=== PATIENT | female | born 1995 | race African-American/Black ===

== ENCOUNTER 2019-07-13 10:36 | Outpatient (CLI) | payer OTHER, SELFPAY ==
--- NOTE | ~2019-07-13 | US_ITS ---
EXAMINATION: US OB follow up DATE: 07/13/2019 11:28 INDICATION: Routine care, second trimester TECHNIQUE: Real-time ultrasound of the pelvis was performed. The interpreting radiologist was not pre sent for the study. COMPARISON: None. FINDINGS: There is a single living fetus in vertex presentation. The placenta is posterior/fundal. Fe isaiah cardiac activity and movement are noted. heart rate is 157 beats per minute (bpm). Th e amniotic fluid index is 16.1 cm which is normal. The following biometric data were obtained: Biparietal diameter (BPD): 6.3 cm; head circumference (HC): 23.4 cm; abdominal circumference (AC): 22 .9 cm; femur length (FL): 5.1 cm. The head circumference to abdominal circumference ratio is greater than two standard deviations below the mean. These measurements are otherwise concordant. Estimated weight is 1032 g +/- 154 g, which correlates with the 37th percentile when 10/11/2019 is used as estimated date of delivery. As single measurements, these parameters are each equal to the following estimated gestational ages w ith ranges of +/- 2 standard deviations: BPD: 25 weeks 5 days +/- 2 weeks 1 days. HC: 25 weeks 4 days +/- 2 weeks 0 days. AC: 27 weeks 2 days +/- 2 weeks 1 days. FL: 27 weeks 5 days +/- 2 weeks 1 days. estimated gestational age based solely on measurements from this exam is 26 weeks 4 days +/- 1 weeks 6 days. IMPRESSION: 1. Single living fetus in vertex presentation. 2. Normal amniotic fluid index. 3. Estimated weight is 1032 g +/- 154 g, which correlates with the 37th percentile when 10/11/19 20 is used as estimated date of delivery. 4. Head circumference to abdominal circumference ratio greater than two standard deviations below the mean. Reviewed, dictated and finalized at location A. IMPRESSION: 1. Single living fetus in vertex presentation. 2. Normal amniotic fluid index. 3. Estimated weight is 1032 g +/- 154 g, which correlates with the 37th p ercentile when 10/11/2019 is used as estimated date of delivery. 4. Head circumference to abdominal circumference ratio greater than two standar d deviations below the mean.
== END 2019-07-13 10:37 | disposition home or self-care (01) ==
LOC: ANHIMG 10:37
PROVIDERS: Visit Provider Obstetrics & Gynecology
DX: Z34.93 Encounter for supervision of normal pregnancy, unspecified, third trimester (principal)
CPT/HCPCS: 76816

== ENCOUNTER 2019-09-30 13:30 | Outpatient (RCR) | payer OTHER, SELFPAY ==
--- NOTE | ~2019-09-30 | US_ITS ---
EXAMINATION: US OB BPP wo non-stress DATE: 09/30/2019 15:03 INDICATION: Evaluate well-being TECHNIQUE: Real-time pelvic ultrasound was performed. The interpreting radiologist was not present fo r the study. COMPARISON: 07/13/2019 FINDINGS: There is a single living fetus in vertex presentation. The placenta is fundal/posterior. cardi ac activity and movement are demonstrated. heart rate is 135 beats per minute (bpm). Biophysical profile performed by the technologist: breathing (30 sec sustained breathing in 30 minutes): 2 out of 2 movement (3 gross body movements in 30 minutes): 2 out of 2 tone (one episode of hmiqomj-isbufhsvi-mfaeazw limb movement): 2 out of 2 Amniotic fluid pocket (2 cm): 2 out of 2 Total score: 8 out of 8 IMPRESSION: 1. Single living intrauterine in vertex presentation with heart rate of 135 bpm. 2. Normal placenta. 3. Biophysical profile 8 out of 8. Reviewed, dictated and finalized at location A.
[2019-09-30 16:12] VITALS: BP 143/77; PULSE 106
== END 2019-10-11 07:57 | disposition home or self-care (01) ==
LOC: ANHOBOP 13:30
PROVIDERS: Visit Provider Obstetrics & Gynecology
DX: O26.899 Other specified pregnancy related conditions, unspecified trimester (principal); Z3A.00 Weeks of gestation of pregnancy not specified
CPT/HCPCS: 59025; 76819

== ENCOUNTER 2019-10-08 14:20 | Inpatient (IN) | payer OTHER, SELFPAY ==
[2019-10-08] VITALS (64 sets, daily range): BP systolic 99–153; BP diastolic 44–116; PULSE 95–137; RESP 18; TEMP 37–37.7; O2SAT 96–100
[2019-10-08 15:21] LABS: Basophils Percent Auto 0.3 % (0.2-1.2); Eosinophils Absolute Auto 0.2 K/mm3 (0-0.3); Eosinophils Percent Auto 1.3 % (0-4.4); Hematocrit 28.7 % (37.0-47.0); Hemoglobin 9.4 g/dL (12.0-15.0); Immature Granulocyte Absolute 0.09 K/mm3 (0.00-0.031); Immature Granulocyte Percent A 0.8 % (0-0.5); Lymphocytes Absolute Auto 0.86 K/mm3 (0.9-3.2); Lymphocytes Percent Auto 7.2 % (18.3-44.2); Mean Corpuscular HGB Conc 32.8 g/dl (32-36); Mean Corpuscular Hemoglobin 27.3 pg (26-34); Mean Corpuscular Volume 83.4 fl (80-100); Mean Platelet Volume 9.9 fl (7.4-10.4); Monocytes Absolute Auto 1.1 K/mm3 (0.1-0.6); Monocytes Percent Auto 8.8 % (2.6-8.5); Neutrophils Absolute Auto 9.7 K/mm3 (1.3-6.7); Neutrophils Percent Auto 81.6 % (45.5-73.1); Platelet Count Result 265 k/mm3 (150-375); Red Blood Count 3.44 M/mm3 (4.2-5.4); Red Cell Distribution Width 14.6 % (11.5-14.5); White Blood Count 11.9 K/mm3 (4.5-10.0)
[2019-10-08] MEDS: LACTATED RINGERS 1,000 ML 125 ML IV CONT ×2 (15:30→16:15)
[2019-10-08] MEDS: AMPICILLIN 2 GM/NS 100 ML 2 GM/100 ML BAG IVPB (15:32)
[2019-10-08 15:39] LABS: Alanine Aminotransferase 13 U/L (4-35); Albumin Level 3.7 g/dL (3.5-5.1); Alkaline Phosphatase 295 U/L (38-126); Aspartate Amino Transferase 26 U/L (14-36); Bilirubin,Total 0.6 mg/dL (0.2-1.3); Blood Urea Nitrogen 5 mg/dL (7-17); Calcium 9.3 mg/dL (8.4-10.2); Carbon Dioxide 19 mmol/L (22-30); Chloride 104 mmol/L (98-107); Estimated Glomerular Filt Rate > 60; Glucose 106 mg/dL (65-105); Potassium 3.4 mmol/L (3.4-5.0); Sodium 134 mmol/L (137-145); Uric Acid 4.7 mg/dL (2.5-7.5)
--- NOTE | 2019-10-08 15:42 | PM.IMHP ---
H&P: HPI History of Present Illness Chief complaint: Contractions Narrative: Megan Werner is a 24 year old female at 39w4d presenting to L&D with contractions since this morning. care with Dr. Bruce, denies any complications with . Contractions are regular and painful. She would like an epidural. Review of Systems Constitutional: Constitutional: Reports no additional constitutional complaints Cardiovascular: Cardiovascular: Reports no additional cardiovascular complaints Respiratory: Respiratory: Reports no additional respiratory complaints Gastrointestinal: Gastrointestinal: Reports no additional gastrointestinal complaints Genitourinary: Genitourinary: Reports no additional female genitourinary complaints Neurologic: Reports system reviewed and no additional complaints, except as documented Psychiatric: Psychiatric: Reports no additional psychiatric complaints [facility] Family History Family History Other Unknown family medical history Social History Social History Substance use: never Spiritual care concerns: No Meds Home Medications and Allergies Home Medications Medication Instructions Recorded Confirmed Type PNV cmb#95-ferrous fumarate-FA 1 tablet PO DAILY 09/29/19 09/29/19 History [] Allergies Allergy/AdvReac Type Severity Reaction Status Date / Time No Known Allergies Allergy Verified 09/29/19 11:02 Vital Signs Vital Signs - 24 hr 10/08/19 15:23 Pulse Rate 111 H Blood Pressure 127/82 Exam Const: General: no acute distress and uncomfortable (with contractions) Resp: Effort & Inspection: normal respiratory effort Cardio: Rate: regular rate GI: Other: gravid : Other: 5/80/-2 with bulging membranes Skin: General skin exam: normal color Neuro: Speech: normal speech Psych: Mental Status: mental status grossly normal H&P: Results Labs Labs: Short CBC 10/08/19 Range/Units 15:12 WBC 11.9 H (4.5-10.0) K/mm3 Hgb 9.4 L (12.0-15.0) g/dL Hct 28.7 L (37.0-47.0) % Plt Count 265 (150-375) k/mm3 BMP 10/08/19 15:12 Sodium 134 L Potassium 3.4 Chloride 104 Carbon Dioxide 19 L BUN 5 L Creatinine 0.60 L Glucose 106 H Calcium 9.3 Liver Function 10/08/19 Range/Units 15:12 Total Bilirubin 0.6 (0.2-1.3) mg/dL AST 26 (14-36) U/L ALT 13 (4-35) U/L Alkaline Phosphatase 295 H (38-126) U/L Albumin 3.7 (3.5-5.1) g/dL Assessment and Plan Assessment and plan (1) Term : Code(s): Z34.90 - Encounter for supervision of normal , unspecified, unspecified trimester Status: Acute Assessment and Plan: Routine intrapartum care (2) Active labor at term: Status: Acute Assessment and Plan: Admit to L&D for labor Epidural for pain management requested (3) Positive GBS test: Code(s): B95.1 - Streptococcus, group B, as the cause of diseases classified elsewhere Status: Acute Assessment and Plan: GBS prophylaxis
[2019-10-08 16:19] LABS: HIV 1/2 Ab P24 Ag Result Negative (Negative)
--- NOTE | 2019-10-08 16:31 | WPDANESEPPF ---
Anes - Initial Pre Proc Eval Date/Time: 10/08/19 16:31 Surgeon: Que Bruce MD Pre Op Diagnosis: Contractions Patient Data Age: 24 Gender: F Height: Weight: Last Vital Signs Pulse 112 H 10/08/19 16:29 BP 99/44 L 10/08/19 16:29 Pulse Ox 99 10/08/19 16:27 Allergies Allergy/AdvReac Type Severity Reaction Status Date / Time No Known Allergies Allergy Verified 09/29/19 11:02 Home Medications Medication Instructions Recorded Confirmed Type PNV cmb#95-ferrous fumarate-FA 1 tablet PO DAILY 09/29/19 09/29/19 History [] Laboratory Tests 10/08/19 10/08/19 10/08/19 15:12 15:12 15:12 WBC 11.9 K/mm3 H K/mm3 (4.5-10.0) RBC 3.44 M/mm3 L M/mm3 (4.2-5.4) Hgb 9.4 g/dL L g/dL (12.0-15.0) Hct 28.7 % L % (37.0-47.0) MCV 83.4 fl fl (80-100) MCH 27.3 pg pg (26-34) MCHC 32.8 g/dl g/dl (32-36) RDW 14.6 % H % (11.5-14.5) Plt Count 265 k/mm3 k/mm3 (150-375) MPV 9.9 fl fl (7.4-10.4) Immature Gran % (Auto) 0.8 % H % (0-0.5) Neut % (Auto) 81.6 % H % (45.5-73.1) Lymph % (Auto) 7.2 % L % (18.3-44.2) [place] % (Auto) 8.8 % H % (2.6-8.5) Eos % (Auto) 1.3 % % (0-4.4) Baso % (Auto) 0.3 % % (0.2-1.2) Lymph # (Auto) 0.86 K/mm3 L K/mm3 (0.9-3.2) [place] # (Auto) 1.1 K/mm3 H K/mm3 (0.1-0.6) Eos # (Auto) 0.2 K/mm3 K/mm3 (0-0.3) Baso # (Auto) 0.0 K/mm3 K/mm3 (0.0-0.1) Abs Immat Gran (auto) 0.09 K/mm3 H K/mm3 (0.00-0.031) Absolute Neuts (auto) 9.7 K/mm3 H K/mm3 (1.3-6.7) Absolute Nucleated RBC 0.0 K/mm3 K/mm3 (0.0-0.012) Nucleated RBC % 0.0 % % (0.0-0.2) Sodium Potassium Chloride Carbon Dioxide BUN Creatinine Estim Creat Clear Calc Estimated GFR Glucose Uric Acid Calcium Total Bilirubin AST ALT Alkaline Phosphatase Total Protein Albumin RPR Pending HIV 1&2 Ab/P24 Ag 4thGn Negative (Negative) 10/08/19 10/08/19 15:12 15:12 WBC RBC Hgb Hct MCV MCH MCHC RDW Plt Count MPV Immature Gran % (Auto) Neut % (Auto) Lymph % (Auto) [place] % (Auto) Eos % (Auto) Baso % (Auto) Lymph # (Auto) [place] # (Auto) Eos # (Auto) Baso # (Auto) Abs Immat Gran (auto) Absolute Neuts (auto) Absolute Nucleated RBC Nucleated RBC % Sodium 134 mmol/L L mmol/L (137-145) Potassium 3.4 mmol/L mmol/L (3.4-5.0) Chloride 104 mmol/L mmol/L (98-107) Carbon Dioxide 19 mmol/L L mmol/L (22-30) BUN 5 mg/dL L mg/dL (7-17) Creatinine 0.60 mg/dL L mg/dL (0.7-1.0) Estim Creat Clear Calc Not Reportable Estimated GFR > 60 (59 - ) Glucose 106 mg/dL H mg/dL (65-105) Uric Acid Cancelled 4.7 mg/dL mg/dL (2.5-7.5) Calcium 9.3 mg/dL mg/dL (8.4-10.2) Total Bilirubin 0.6 mg/dL mg/dL (0.2-1.3) AST 26 U/L U/L (14-36) ALT 13 U/L U/L (4-35) Alkaline Phosphatase 295 U/L H U/L (38-126) Total Protein 7.0 g/dL g/dL (6.3-8.2) Albumin 3.7 g/dL g/dL (3.5-5.1) RPR HIV 1&2 Ab/P24 Ag 4thGn Patient hx anesthesia problems: none Family hx anesthesia problems: none [facility] Family History Family History Other Unknown family medical history Social History Social History (Reviewed 10/08/19 @ 16:32 by Bartolo Walsh,
--- NOTE | 2019-10-08 16:39 | LDADM ---
This patient, Megan Werner, was admitted to Labor/Delivery/Recovery 103 on 10/08/19 at 14:20. Plans for labor, pain management and were discussed with patient. Patient/family oriented to hospital policies and general routines including ID bracelet, bed and alarms, visiting hours, pain management, procedures, bathroom and other care routines, personal items, smoking policy, room service/diet and guest tray routines, security routines, call light, and visiting hours. Patient/Family are encouraged to report perceived risks to care and to ask questions if they do not understand what they are told or what they should do. See OBIX for further documentation.
[2019-10-08] MEDS: OXYTOCIN 30 UNITS/NS 500 ML 30 UNITS/500 ML BAG 999 UNITS IV CONT (17:58)
--- NOTE | 2019-10-08 18:30 | P.PCNOB_ITS ---
OB - Delivery Note Procedure Delivery date: 10/08/19 Intrapartal events: None Route of delivery: Laceration description: Perineal - 1st Degree Delivery repair: vicryl Estimated blood loss (mL): 200 [place] Baby Date of : 10/08/19 Time of : 18:02 Weeks of gestation at delivery: 39 gender: Female Weight (pounds): 6 Weight (ounces): 15 presentation: vertex position: Right Occiput Anterior Placenta delivery description: Spontaneous cord vessel description: 3 Vessels score one minute: 9 score five minutes: 9
[2019-10-08 18:34] LABS: Add Urine Microscopic? YES; Appearance Urine Clear (Clear); Bacteria Urine Trace /hpf; Bilirubin Urine 1+ (Negative); Blood Urine Negative (Negative); Color Urine Amber (Yellow); Glucose Urine UA Negative (Negative); Ketones Urine 1+ mg/dL (Negative); Leukocyte Esterase Ur Negative LEU/UL (Negative); Mucus Urine Heavy /lpf; Nitrate Urine Negative (Negative); Protein Urine 2+ mg/dL (Negative); Squamous Epithelial Cell Urine Moderate /hpf (Few); WBC Urine 16-20 /hpf
[2019-10-08 18:37] LABS: Specific Grav Ur 1.033 (1.001-1.035)
[2019-10-08] MEDS: OXYTOCIN 30 UNITS/NS 500 ML 30 UNITS/500 ML BAG 125 UNITS IV CONT (18:47)
[2019-10-08] MEDS: IBUPROFEN 600 MG TABLET PO (20:15)
--- NOTE | 2019-10-08 20:32 | OBPPTRN ---
Patient transferred to post room #281 via wheelchair with baby in bassinet. Support person present. Oriented to unit, room, information board, rooming in, admission packet and security measures. Patient verbalizes understanding.
--- NOTE | 2019-10-08 20:42 | OP_ITS ---
DATE OF PROCEDURE: 10/08/2019 PROCEDURE: Normal spontaneous vaginal delivery. PRE-DELIVERY DIAGNOSES: 1. Sqhtxo-iqpm-lrge term gestation. 2. Active labor. POST-DELIVERY DIAGNOSES: 1. Ffipjx-fiho-vrnu term gestation. 2. Active labor. ANESTHESIA: Epidural. ESTIMATED BLOOD LOSS: 200 mL. FINDINGS: 1. Single live female , born on October 08, 2019 at 1802, weight 6 pounds 15 ounces, 9 and 9. 2. First-degree perineal laceration repaired with 2-0 Vicryl. 3. 5 mm vaginal cyst. SPECIMEN: Vaginal cyst, sent to pathology. COMPLICATIONS: None apparent. BRIEF HISTORY: A 24-year-old G4, P1, at 39 weeks and 4 days, presented to Labor and Delivery in labor. The patient was noted to be 4 cm. The patient progressed in normal labor, had spontaneous rupture of membranes. DESCRIPTION OF PROCEDURE: Once the patient was noted to be complete and ready to push, the labor bed was broken down and her legs were placed in stirrups for support. With contractions and maternal efforts, the presented in CRISTIANO position. The head was delivered. No nuchal cord noted. Gentle downward traction was applied. Anterior shoulder was delivered without incident followed by the posterior shoulder and the rest of the body. Delayed cord clamping of approximately 1 minute was performed. Cord was clamped and cut. Cord gases collected. Gentle traction applied on the umbilical cord, and the placenta was delivered spontaneously. Fundal massage was applied. IV oxytocin administered. Exam was performed to identify any lacerations. A first-degree perineal laceration was noted. This was bleeding, so this was repaired with 2-0 Vicryl. Along the line of her perineal laceration, there was a vaginal cyst. This was removed and sent to pathology for further analysis. The patient tolerated the procedure well and all instrument and sponge counts were correct at the end of the procedure. D I MT: Alirio
[2019-10-08] MEDS: DIBUCAINE 1% OINTMENT 30 GM TUBE 1 APPLIC TOPICAL (20:45)
[2019-10-08] MEDS: BENZOCAINE 20% AER SPR (*SP) 56 GM CAN 1 SPRAY TOPICAL (20:45)
[2019-10-09 06:36] LABS: Hematocrit 29.8 % (37.0-47.0); Hemoglobin 9.5 g/dL (12.0-15.0)
[2019-10-09 08:57] VITALS: BP 136/82; PULSE 77; RESP 16; TEMP 36.4; O2SAT 100
[2019-10-09] MEDS: POLYSACCHARIDE IRON COMPLEX 150 MG CAPSULE PO ×2 (09:01→16:03)
[2019-10-09] MEDS: DOCUSATE SODIUM 100 MG CAPSULE PO ×2 (09:01→16:01)
[2019-10-09] MEDS: MULTIVIT/MIN/PREN/FOL AC/IRON TABLET 1 TAB PO (09:01)
--- NOTE | 2019-10-09 10:02 | PM.OBPNVD ---
OB - PN: Subj Subjective Date/time seen: 10/09/19 10:02 Interval history: 24yo s/p on 10/07. Patient comments: no complaints and pain well controlled [place] baby status: doing well Narrative: Doing well, pain well controlled, lochia decreasing. Would like to go home today after 24 hours. OB - PN: Obj Data Labs CBC & Chem 7: 10/09/19 05:57 10/08/19 15:12 Labs: Laboratory Results - last 24 hr 10/08/19 10/08/19 10/08/19 15:12 15:12 15:12 WBC 11.9 H RBC 3.44 L Hgb 9.4 L Hct 28.7 L MCV 83.4 MCH 27.3 MCHC 32.8 RDW 14.6 H Plt Count 265 MPV 9.9 Immature Gran % (Auto) 0.8 H Neut % (Auto) 81.6 H Lymph % (Auto) 7.2 L [place] % (Auto) 8.8 H Eos % (Auto) 1.3 Baso % (Auto) 0.3 Lymph # (Auto) 0.86 L [place] # (Auto) 1.1 H Eos # (Auto) 0.2 Baso # (Auto) 0.0 Abs Immat Gran (auto) 0.09 H Absolute Neuts (auto) 9.7 H Absolute Nucleated RBC 0.0 Nucleated RBC % 0.0 Sodium Potassium Chloride Carbon Dioxide BUN Creatinine Estim Creat Clear Calc Estimated GFR Glucose Uric Acid Calcium Total Bilirubin AST ALT Alkaline Phosphatase Total Protein Albumin Urine Color Urine Appearance Urine pH Ur Specific [place] Urine Protein Urine Glucose (UA) Urine Ketones Ur Blood (Man) Urine Nitrate Urine Bilirubin Urine Urobilinogen Leukocyte Esterase Rfl Urine RBC Urine WBC Ur Squamous Epith Cells Urine Bacteria Urine Mucus HIV 1&2 Ab/P24 Ag 4thGn Negative Blood Type A Positive Antibody Screen Negative 10/08/19 10/08/19 10/08/19 15:12 15:12 18:14 WBC RBC Hgb Hct MCV MCH MCHC RDW Plt Count MPV Immature Gran % (Auto) Neut % (Auto) Lymph % (Auto) [place] % (Auto) Eos % (Auto) Baso % (Auto) Lymph # (Auto) [place] # (Auto) Eos # (Auto) Baso # (Auto) Abs Immat Gran (auto) Absolute Neuts (auto) Absolute Nucleated RBC Nucleated RBC % Sodium 134 L Potassium 3.4 Chloride 104 Carbon Dioxide 19 L BUN 5 L Creatinine 0.60 L Estim Creat Clear Calc Not Reportable Estimated GFR > 60 Glucose 106 H Uric Acid Cancelled 4.7 Calcium 9.3 Total Bilirubin 0.6 AST 26 ALT 13 Alkaline Phosphatase 295 H Total Protein 7.0 Albumin 3.7 Urine Color [place] Urine Appearance Clear Urine pH 5.0 Ur Specific [place] 1.033 Urine Protein 2+ H Urine Glucose (UA) Negative Urine Ketones 1+ H Ur Blood (Man) Negative Urine Nitrate Negative Urine Bilirubin 1+ H Urine Urobilinogen 4.0 H Leukocyte Esterase Rfl Negative Urine RBC 3-5 H Urine WBC 16-20 H Ur Squamous Epith Cells Moderate H Urine Bacteria Trace Urine Mucus Heavy H HIV 1&2 Ab/P24 Ag 4thGn Blood Type Antibody Screen 10/09/19 05:57 WBC RBC Hgb 9.5 L Hct 29.8 L MCV MCH MCHC RDW Plt Count MPV Immature Gran % (Auto) Neut % (Auto) Lymph % (Auto) [place] % (Auto) Eos % (Auto) Baso % (Auto) Lymph # (Auto) [place] # (Auto) Eos # (Auto) Baso # (Auto) Abs Immat Gran (auto) Absolute Neuts (auto) Absolute Nucleated RBC Nucleated RBC % Sodium Potassium Chloride Carbon Dioxide BUN Creatinine Estim Creat Clear Calc Estimated GFR Glucose Uric Acid Calcium Total Bilirubin AST ALT Alkaline Phosphatase Total Protein Albumin Urine Color Urine Appearance Urine pH Ur Specific [place] Urine Protein Urine Glucose (UA) Urine Ketones Ur Blood (Man) Urine Nitrate Urine Bilirubin Urine Urobilinogen Leukocyte Esterase Rfl Urine RBC Urine WBC Ur Squamous Epith Cells Urine Bacteria Urine Mucus HIV 1&2 Ab/P24 Ag 4thGn Blood Type Antibody Screen OB - PN A/P Assessment and Plan (1) (normal spontaneous vaginal delivery):
--- NOTE | 2019-10-09 10:07 | PM.DS ---
DS: Admitting Diagnosis Admitting Diagnosis Admitting Diagnosis: Encounter for supervision of normal , unspecified, unspecified trimester DS: Discharge Diagnosis Discharge Diagnosis (1) (normal spontaneous vaginal delivery): Code(s): O80 - Encounter for full-term uncomplicated delivery Status: Acute Assessment and Plan: routine care pain management ambulate ok for DC home today DS: Summary Time Spent with Patient Time attestation: Total time spent providing and/or coordinating discharge services: Exam Const: General: no acute distress and uncomfortable (with contractions) Resp: Effort & Inspection: normal respiratory effort Cardio: Rate: regular rate GI: Inspection: normal to inspection Other: fundus firm Skin: General skin exam: normal color Neuro: Speech: normal speech Psych: Mental Status: mental status grossly normal DS: Data Data Completed and Pending Pending studies at discharge: Pending at discharge 10/08/19 18:32 Surgical [PTH] Routine 10/08/19 19:37 Surgical [PTH] Routine Labs on day of discharge: Labs from last 24 hours 10/09/19 10/08/19 10/08/19 05:57 18:14 15:12 WBC RBC Hgb 9.5 L Hct 29.8 L MCV MCH MCHC RDW Plt Count MPV Immature Gran % (Auto) Neut % (Auto) Lymph % (Auto) [place] % (Auto) Eos % (Auto) Baso % (Auto) Lymph # (Auto) [place] # (Auto) Eos # (Auto) Baso # (Auto) Abs Immat Gran (auto) Absolute Neuts (auto) Absolute Nucleated RBC Nucleated RBC % Sodium 134 L Potassium 3.4 Chloride 104 Carbon Dioxide 19 L BUN 5 L Creatinine 0.60 L Estim Creat Clear Calc Not Reportable Estimated GFR > 60 Glucose 106 H Uric Acid 4.7 Calcium 9.3 Total Bilirubin 0.6 AST 26 ALT 13 Alkaline Phosphatase 295 H Total Protein 7.0 Albumin 3.7 Urine Color [place] Urine Appearance Clear Urine pH 5.0 Ur Specific [place] 1.033 Urine Protein 2+ H Urine Glucose (UA) Negative Urine Ketones 1+ H Ur Blood (Man) Negative Urine Nitrate Negative Urine Bilirubin 1+ H Urine Urobilinogen 4.0 H Leukocyte Esterase Rfl Negative Urine RBC 3-5 H Urine WBC 16-20 H Ur Squamous Epith Cells Moderate H Urine Bacteria Trace Urine Mucus Heavy H RPR HIV 1&2 Ab/P24 Ag 4thGn Blood Type Antibody Screen 10/08/19 10/08/19 10/08/19 15:12 15:12 15:12 WBC RBC Hgb Hct MCV MCH MCHC RDW Plt Count MPV Immature Gran % (Auto) Neut % (Auto) Lymph % (Auto) [place] % (Auto) Eos % (Auto) Baso % (Auto) Lymph # (Auto) [place] # (Auto) Eos # (Auto) Baso # (Auto) Abs Immat Gran (auto) Absolute Neuts (auto) Absolute Nucleated RBC Nucleated RBC % Sodium Potassium Chloride Carbon Dioxide BUN Creatinine Estim Creat Clear Calc Estimated GFR Glucose Uric Acid Cancelled Calcium Total Bilirubin AST ALT Alkaline Phosphatase Total Protein Albumin Urine Color Urine Appearance Urine pH Ur Specific [place] Urine Protein Urine Glucose (UA) Urine Ketones Ur Blood (Man) Urine Nitrate Urine Bilirubin Urine Urobilinogen Leukocyte Esterase Rfl Urine RBC Urine WBC Ur Squamous Epith Cells Urine Bacteria Urine Mucus RPR Pending HIV 1&2 Ab/P24 Ag 4thGn Blood Type A Positive Antibody Screen Negative 10/08/19 10/08/19 15:12 15:12 WBC 11.9 H RBC 3.44 L Hgb 9.4 L Hct 28.7 L MCV 83.4 MCH 27.3 MCHC 32.8 RDW 14.6 H Plt Count 265 MPV 9.9 Immature Gran % (Auto) 0.8 H Neut % (Auto) 81.6 H Lymph % (Auto) 7.2 L [place] % (Auto) 8.8 H Eos % (Auto) 1.3 Baso % (Auto) 0.3 Lymph # (Auto) 0.86 L [place] # (Auto) 1.1 H Eos # (Auto) 0.2 Baso # (Auto) 0.0 Abs
--- NOTE | 2019-10-09 11:40 | WPDANLDPN2 ---
Anes-Prog Note L&D Date/Time: 10/09/19 11:40 Comfortable throughout: labor and delivery Neuraxial method: epidural Epidural/Spinal procedure site: clean & non-tender Neuro status: Neuro function grossly intact. Cardiovascular status: normal Respiratory status: normal Airway patency: baseline Mental status: baseline Post-Op hydration status: normal Vital Signs: Last Vital Signs Temp 36.4 C 10/09/19 08:57 Pulse 77 10/09/19 08:57 Resp 16 10/09/19 08:57 BP 136/82 10/09/19 08:57 Pulse Ox 100 10/09/19 08:57 I/O: Intake & Output 10/08/19 10/09/19 10/09/19 23:59 07:59 15:59 Intake Total 1100 Output Total 283 Balance 817 Patient feedback: Patient satisfied with anesthetic care.
[2019-10-09] MEDS: IBUPROFEN 600 MG TABLET PO (16:01)
[2019-10-09 19:40] VITALS: BP 128/89; PULSE 82; RESP 16; TEMP 36.4; O2SAT 100
[2019-10-10] MEDS: IBUPROFEN 600 MG TABLET PO ×2 (00:41→09:36)
[2019-10-10 07:05] VITALS: BP 133/76; PULSE 58; RESP 20; TEMP 35.8; O2SAT 100
[2019-10-10] MEDS: MULTIVIT/MIN/PREN/FOL AC/IRON TABLET 1 TAB PO (09:36)
[2019-10-10] MEDS: DOCUSATE SODIUM 100 MG CAPSULE PO (09:36)
[2019-10-10] MEDS: POLYSACCHARIDE IRON COMPLEX 150 MG CAPSULE PO (09:36)
[2019-10-11 08:49] LABS: Rapid Plasma Reagin Non-Reactive (NonReactive)
== END 2019-10-10 11:42 | disposition home or self-care (01) | DRG 560 ==
LOC: ANHOB2 10-10 09:48 → ANHLDR 10-13 08:42 → ANHOB2 10-13 08:42
PROVIDERS: Admitting Provider Obstetrics & Gynecology; Visit Provider Obstetrics & Gynecology
DX: O99.824 Streptococcus B carrier state complicating childbirth (principal); Z37.0 Single live birth; Z3A.39 39 weeks gestation of pregnancy; O70.0 First degree perineal laceration during delivery; O99.89 Other specified diseases and conditions complicating pregnancy, childbirth and the puerperium; N89.8 Other specified noninflammatory disorders of vagina; O99.62 Diseases of the digestive system complicating childbirth; K21.9 Gastro-esophageal reflux disease without esophagitis; O98.32 Other infections with a predominantly sexual mode of transmission complicating childbirth; A56.8 Sexually transmitted chlamydial infection of other sites
CPT/HCPCS: 36415; 80053; 81001; 84550; 85014; 85018; 85025; 86592; 86703; 86850; 86900; 86901; 87086; 88305; A9270; G0432; J0290; J2590; J2795; J7120